=== PATIENT | male | born 1985 | race Caucasian/White ===

== ENCOUNTER 2017-03-04 07:09 | Emergency (ER) | payer OTHER ==
[2017-03-04 07:31] VITALS: BP 122/82; PULSE 68; RESP 16; TEMP 96.6; O2SAT 99
[2017-03-04] MEDS ORDERED: SOLUMEDROL 125 MG/2 ML 125 MG/2 ML PDS IM ONE (08:55)
[2017-03-04] MEDS ORDERED: KETOROLAC TROMETHAMINE 30 MG/ML SOL IM ONE (08:55)
[2017-03-04] MEDS ORDERED: KETOROLAC TROMETHAMINE 30 MG/ML SOL ONE (08:56)
[2017-03-04] MEDS ORDERED: SOLUMEDROL 125 MG/2 ML 125 MG/2 ML PDS ONE (08:56)
== END 2017-03-04 09:10 | disposition home or self-care (01) | DRG 538 ==
LOC: ED 07:09
DX: S76.011A Strain of muscle, fascia and tendon of right hip, initial encounter (principal); X50.9XXA Other and unspecified overexertion or strenuous movements or postures, initial encounter
CPT/HCPCS: 73501; 99283; J1885; J2930

== ENCOUNTER 2018-04-19 10:14 | Emergency (ER) | payer OTHER ==
[2018-04-19 10:30] VITALS: TEMP 97.6
[2018-04-19] MEDS ORDERED: HYDROMORPHONE 1 MG/ML SYRINGE ONE ×2 (10:39→10:56)
[2018-04-19] MEDS ORDERED: HYDROMORPHONE 1 MG/ML SYRINGE IV ONE ×2 (10:41→10:56)
[2018-04-19] MEDS ORDERED: TDAP VACCINE 0.5 ML SUS IM ONE ×2 (10:43→10:44)
[2018-04-19] MEDS ORDERED: LORAZEPAM 2 MG/ML SOL IV ONE (11:12)
[2018-04-19 14:21] VITALS: BP 162/98; PULSE 59; RESP 18; O2SAT 96
== END 2018-04-19 14:05 | disposition home or self-care (01) | DRG 563 ==
LOC: ED 10:14
DX: S43.005A Unspecified dislocation of left shoulder joint, initial encounter (principal); S42.295A Other nondisplaced fracture of upper end of left humerus, initial encounter for closed fracture; W11.XXXA Fall on and from ladder, initial encounter; S01.81XA Laceration without foreign body of other part of head, initial encounter
CPT/HCPCS: 12001; 23655; 73030; 73060; 73070; 90471; 90715; 96374; 96375; 99285; 99291; G0168; J2060; J1170; J2704

== ENCOUNTER 2018-05-17 10:27 | Outpatient (CLI) | payer OTHER ==
[2018-04-19 14:21] VITALS: O2SAT 96
== END 2018-05-17 10:28 | disposition home or self-care (01) | DRG 556 ==
LOC: CONVCARE 10:27
PROVIDERS: ATTEND Orthopaedic Surgery
DX: M25.561 Pain in right knee (principal); S42.92XA Fracture of left shoulder girdle, part unspecified, initial encounter for closed fracture; M25.512 Pain in left shoulder; S50.01XA Contusion of right elbow, initial encounter; S80.01XA Contusion of right knee, initial encounter
CPT/HCPCS: 73030

== ENCOUNTER 2018-06-14 11:37 | Outpatient (CLI) | payer OTHER ==
[2018-04-19 14:21] VITALS: O2SAT 96
== END 2018-06-14 11:38 | disposition home or self-care (01) | DRG 561 ==
LOC: CONVCARE 11:37
PROVIDERS: ATTEND Orthopaedic Surgery
DX: S42.202D Unspecified fracture of upper end of left humerus, subsequent encounter for fracture with routine healing (principal); M25.561 Pain in right knee
CPT/HCPCS: 73030